=== PATIENT | female | born 1990 | race Caucasian/White ===

== ENCOUNTER 2019-10-20 15:26 | Emergency (ER) | payer BC ==
[~2019-10-20] VITALS: Ht 167.6 cm; Wt 86.0 kg
[~2019-10-20 15:26] MED LIST: ATIVAN0.5 MG PO; DEPO-ESTRADIOL; DIFLUCAN150 MG PO; GYNE-LOTRIMIN1 % VA; KLONOPIN0.5 MG PO; METRONIDAZOL0.75 % VA; METRONIDAZOL500 MG PO; PRENATAL VITAMINS
[2019-10-20 16:05] LABS: HEMATOCRIT 37.7 % (37.0-47.0); HEMOGLOBIN 12.3 g/dl (12.0-16.0); IMMATURE GRANULOCYTES 0.2 % (0.0-5.0); MEAN CELL VOLUME 84.9 fL CALC (80.0-100.0); MEAN CORPUSCULAR HGB 27.7 pG CALC (26.0-32.0); MEAN CORPUSCULAR HGB CONC 32.6 g/dL CAL (32.0-36.0); NEUT# 7.15 thou/uL (2.00-7.15); RED BLOOD COUNT 4.44 mill/uL (4.20-5.60); RED CELL DISTRI WIDTH 12.4 % (11.5-15.5)
[2019-10-20 16:08] LABS: URINE BILIRUBIN - DIPSTICK NEGATIVE (NEGATIVE); URINE BLOOD DIPSTICK NEGATIVE (NEGATIVE); URINE COLOR YELLOW; URINE GLUCOSE - DIPSTICK NEGATIVE (NEGATIVE); URINE KETONE NEGATIVE (NEGATIVE); URINE LEUK ESTERASE NEGATIVE (NEGATIVE); URINE NITRITE - DIPSTICK NEGATIVE (Negative); URINE PROTEIN - DIPSTICK NEGATIVE (NEG-TRACE); URINE SPECIFIC GRAVITY 1.025; URINE UROBILINOGEN - DIPSTICK 0.2 E.U./dL (0.2)
[2019-10-20] MEDS ORDERED: LAMICTAL100 M1 PO (16:23)
[2019-10-20] MEDS ORDERED: AMBIEN5 MG PO (16:23)
[2019-10-20] MEDS ORDERED: KLONOPIN0.5 MG PO (16:24)
[2019-10-20 16:36] LABS: ALBUMIN 4.2 g/dL (3.2-5.0); ALKALINE PHOSPHATASE 62 u/l (38-126); ANION GAP 12 (6-22 (CALC)); BILIRUBIN, TOTAL 0.3 mg/dL (0.0-1.4); BUN 13 mg/dL (7-17); BUN/CREATININE RATIO 21 (12-20 (CALC)); CARBON DIOXIDE 27 mmol/l (22-30); CHLORIDE 102 mmol/l (95-108); CREATININE 0.6 mg/dL (0.5-1.0); GFR > 60 ML/MIN (>=60 (CALC)); GFR FOR AFR.AMER. > 60 ML/MIN (>=60 (CALC)); LIPASE 339 u/l (23-300); POTASSIUM 3.9 mmol/l (3.5-5.1); SGOT/AST 16 u/l (14-36); SODIUM 138 mmol/l (137-146)
[2019-10-20 17:50] VITALS: BP 117/75
== END 2019-10-20 17:50 | disposition home or self-care (01) | DRG 392 ==
LOC: ED 15:26
PROVIDERS: Family Medicine
DX: R10.12 Left upper quadrant pain (principal); R10.13 Epigastric pain
CPT/HCPCS: Q9967

== ENCOUNTER 2020-07-12 02:12 | Emergency (ER) | payer BC ==
[~2020-07-12] VITALS: Ht 167.6 cm; Wt 71.0 kg
[~2020-07-12 02:12] MED LIST changes: +AMBIEN5 MG PO; +LAMICTAL100 M1 PO
[2020-07-12 02:44] LABS: HEMATOCRIT 42.8 % (37.0-47.0); IMMATURE GRANULOCYTES 0.3 % (0.0-5.0); MEAN CELL VOLUME 86.3 fL CALC (80.0-100.0); MEAN CORPUSCULAR HGB 28.2 pG CALC (26.0-32.0); MEAN CORPUSCULAR HGB CONC 32.7 g/dL CAL (32.0-36.0); NEUT# 8.04 thou/uL (2.00-7.15); RED BLOOD COUNT 4.96 mill/uL (4.20-5.60); RED CELL DISTRI WIDTH 12.4 % (11.5-15.5)
[2020-07-12 02:46] LABS: URINE BLOOD DIPSTICK NEGATIVE (NEGATIVE); URINE COLOR YELLOW; URINE GLUCOSE - DIPSTICK NEGATIVE (NEGATIVE); URINE KETONE NEGATIVE (NEGATIVE); URINE LEUK ESTERASE NEGATIVE (NEGATIVE); URINE PROTEIN - DIPSTICK NEGATIVE (NEG-TRACE); URINE SPECIFIC GRAVITY >=1.030; URINE UROBILINOGEN - DIPSTICK 0.2 E.U./dL (0.2)
[2020-07-12 02:48] LABS: URINE BILIRUBIN - DIPSTICK NEGATIVE (NEGATIVE); URINE NITRITE - DIPSTICK NEGATIVE (Negative)
[2020-07-12 02:58] LABS: ALBUMIN 4.2 g/dL (3.2-5.0); ALKALINE PHOSPHATASE 56 u/l (38-126); AMYLASE 62 u/l (30-110); ANION GAP 12 (6-22 (CALC)); BILIRUBIN, TOTAL 0.3 mg/dL (0.0-1.4); BUN 13 mg/dL (7-17); BUN/CREATININE RATIO 17 (12-20 (CALC)); CARBON DIOXIDE 27 mmol/l (22-30); CHLORIDE 101 mmol/l (95-108); CREATININE 0.7 mg/dL (0.5-1.0); GFR > 60 ML/MIN (>=60 (CALC)); GFR FOR AFR.AMER. > 60 ML/MIN (>=60 (CALC)); LIPASE 78 u/l (23-300); POTASSIUM 3.9 mmol/l (3.5-5.1); SGOT/AST 15 u/l (14-36); SODIUM 136 mmol/l (137-146); TOTAL PROTEIN 7.6 g/dL (6.3-8.2)
[2020-07-12] MEDS ORDERED: TRAMADOL HCL50 MG PO (04:19)
[2020-07-12] MEDS ORDERED: PHENERGAN25 MG/TAB PO (04:19)
[2020-07-12 05:19] VITALS: BP 118/76
[2020-07-12] MEDS ORDERED: KLONOPIN0.5 MG PO (17:17)
[2020-07-13] MEDS ORDERED: PHENERGAN25 MG/TAB PO (18:37)
== END 2020-07-12 04:52 | disposition home or self-care (01) | DRG 392 ==
LOC: ED 02:12
PROVIDERS: Family Medicine
DX: R10.11 Right upper quadrant pain (principal); R10.13 Epigastric pain
CPT/HCPCS: Q9967

== ENCOUNTER 2020-07-12 20:07 | Observation (INO) | payer BC ==
[~2020-07-12] VITALS: Ht 167.6 cm; Wt 73.0 kg
[~2020-07-12 20:07] MED LIST changes: +PHENERGAN25 MG/TAB PO; +TRAMADOL HCL50 MG PO
[2020-07-12 20:27] VITALS: BP 105/72
--- NOTE | 2020-07-12 22:30 | NUR ---
PATIENT ADMITTED FROM REGISTRATION WITH [facility] STAFF IN ATTENDANCE. PATIENT IS AMBULATORY WITH STEADY GAIT. DIRECT ADMIT TO ROOM 262. ALERT AND ORIENTEDX3. PATIENT ADMITTED FOR CHOLECYSTITIS AND FOR OR TOMOOROW WITH DR. PIERRE. PATIENT WITH NO COMPLAINTS OF PAIN OR NAUSEA THIS TIME. ADMISSION ASSESSMENT COMPLETED. IV SITE STARTED TO RIGHT HAND-#2O BY AMARI BENAVIDES AFTER SEVERAL ATTEMPTS BY [facility] STAFF. IVF NS HUNG AND INFUSING VIA RIGHT HAND AT 75CC/HR. OR CONSENT HAS BEEN SIGNED. PRE-OP SHOWER WAS TAKEN WITH PRO-OP SCRUB. INSTRUCTED NPO AFTER MIDNIGHT. PATIENT ORIENTED TO ROOM AND SURROUNDINGS. INSTRUCTED ON USE OF NURSE CALL LIGHT SYSTEM, TV REMOTE AND PHONE. SAFETY PRECAUTIONS REINFORCED. CALL LIGHT IN REACH. WILL CONT TO MONITOR.
[2020-07-13] VITALS (9 sets, daily range): BP systolic 97–126; BP diastolic 57–79
--- NOTE | 2020-07-13 01:00 | NUR ---
PATIENT RESTING IN BED AT THIS TIME WITH EYES CLOSED. RESPS ARE EVEN AND UNLABORED. NPO FOR OR LATER TODAY. IVF NS PATENT AND INFUSING VIA RIGHT HAND AT 75CC/HR. CALL LIGHT IN REACH. WILL CONT TO MONITOR.
--- NOTE | 2020-07-13 04:03 | NUR ---
PATIENT RESTING IN BED-C/O HEADACHE-4/10 ON PAIN SCALE. MEDICATED WITH TORADOL 15MG IVP FOR HEADACHE. IVF NS PATENT AND INFUSING AT 75CC/HR VIA RIGHT HAND SITE. REMAINS NPO FOR OR LATER TODAY. CALL LIGHT IN REACH. WILL CONT TO MONITOR.
[2020-07-13 05:27] LABS: URINE BLOOD DIPSTICK NEGATIVE (NEGATIVE); URINE CLARITY SL CLOUDY; URINE COLOR YELLOW; URINE GLUCOSE - DIPSTICK NEGATIVE (NEGATIVE); URINE KETONE NEGATIVE (NEGATIVE); URINE LEUK ESTERASE NEGATIVE (Negative); URINE NITRITE - DIPSTICK NEGATIVE (Negative); URINE PROTEIN - DIPSTICK NEGATIVE (NEG-TRACE); URINE SPECIFIC GRAVITY >=1.030; URINE UROBILINOGEN - DIPSTICK 0.2 E.U./dL (0.2)
[2020-07-13 05:31] LABS: URINE BILIRUBIN - DIPSTICK NEGATIVE (NEGATIVE)
[2020-07-13 06:48] LABS: HEMATOCRIT 37.8 % (37.0-47.0); HEMOGLOBIN 12.2 g/dl (12.0-16.0); IMMATURE GRANULOCYTES 0.3 % (0.0-5.0); MEAN CELL VOLUME 88.5 fL CALC (80.0-100.0); MEAN CORPUSCULAR HGB 28.6 pG CALC (26.0-32.0); MEAN CORPUSCULAR HGB CONC 32.3 g/dL CAL (32.0-36.0); RED BLOOD COUNT 4.27 mill/uL (4.20-5.60); RED CELL DISTRI WIDTH 12.5 % (11.5-15.5)
[2020-07-13 07:06] LABS: ALBUMIN 3.1 g/dL (3.2-5.0); ALKALINE PHOSPHATASE 41 u/l (38-126); ANION GAP 9 (6-22 (CALC)); BUN 10 mg/dL (7-17); BUN/CREATININE RATIO 14 (12-20 (CALC)); CARBON DIOXIDE 24 mmol/l (22-30); CHLORIDE 107 mmol/l (95-108); CREATININE 0.7 mg/dL (0.5-1.0); GFR > 60 ML/MIN (>=60 (CALC)); GFR FOR AFR.AMER. > 60 ML/MIN (>=60 (CALC)); POTASSIUM 3.9 mmol/l (3.5-5.1); SGOT/AST 15 u/l (14-36); SODIUM 136 mmol/l (137-146); TOTAL PROTEIN 5.9 g/dL (6.3-8.2)
[2020-07-13 07:08] LABS: BILIRUBIN, TOTAL 0.3 mg/dL (0.0-1.4)
--- NOTE | 2020-07-13 07:49 | NUR ---
PT LAYING IN BED. A&O X4. NO DISTRESS NOTED. PT DENIES ANY ABD PAIN OR N&V. CLEAR BREATH SOUNDS UPON AUSCULTATION. ACTIVE BOWEL SOUNDS X4 QUADS. #20 RH WITH NS INFUSING PER EMAR ORDERS. PT EDUCATED AND EXPLAINED ON NEEDED COVID TEST PRIOR TO BE TAKEN TO SURGERY, PT AGREEABLE. COVID SWAB SAMPLE OBTAINED FROM BOTH NARES, PT TOLERATED WELL. ASSESSMENT COMPLETED. DISCUSSED POC. CALL LIGHT WITHIN REACH.
--- NOTE | 2020-07-13 09:27 | NUR ---
HOME MEDS COUNTED AND VERIFIED WITH PATIENT AND Tani BAUGH RN. MEDICATIONS SEALED AND SENT TO PHARMACY.
--- NOTE | 2020-07-13 09:35 | NUR ---
DR DALE AT BEDSIDE DISCUSSING POC
--- NOTE | 2020-07-13 09:56 | NUR ---
PT TAKEN TO OR VIA STRETCHER IN STABLE CONDITION.
--- NOTE | 2020-07-13 12:27 | NUR ---
REPORT REC FROM JEMAL BENAVIDES.
--- NOTE | 2020-07-13 12:36 | NUR ---
PT ARRIVED VIA STRETCHER ACCOMPANIED BY Judi MORE RN. PT DROWSY BUT ABLE TO FOLLOW DIRECTIONS. PT ABLE TO MOVE HERSELF FROM OR STRETCHER TO THE BED. 4 SMALL LAPAROSCOPIC INCISIONS NOTED TO RU ABD AND UBMILICUS. SCD'S APPLIED. PT EDUCATED ON CALLING WHEN WANTING TO GET OOB TO PREVENT A FALL. PT VERBALIZED UNDERSTANDING. BED SET IN LOWEST POSITION. CALL LIGHT WITHIN REACH.
--- NOTE | 2020-07-13 12:57 | NUR ---
PT ASSISTED TO BATHROOM. STEADY GAIT NOTED. 150 CC OF CLEAR YELLOW URINE NOTED. PT ASSISTED BACK INTO BED. VSS. CALL LIGHT WITHIN REACH.
--- NOTE | 2020-07-13 13:48 | NUR ---
PT TOLERATING ICE CHIPS AND WATER WITH NO COMPLICATIONS. CALL LIGHT WITHIN REACH.
--- NOTE | 2020-07-13 14:12 | NUR ---
PT C/O OF PAIN RATED AT A "5" OUT OF THE 0-10 PAIN SCALE. PRN PO MEDICATION GIVEN. PT TOLERATED WELL. FAMILY MEMBER AT BEDSIDE. NO OTHER NEEDS AT THIS TIME. CALL LIGHT WITHIN REACH.
--- NOTE | 2020-07-13 16:19 | NUR ---
CRITICAL RESULT OF HGB 6.8 GIVEN TO Tani MOSQUERA APRN. AWAITING RESULTS.
--- NOTE | 2020-07-13 18:09 | NUR ---
D/C INSTRUCTIONS GIVEN TO PT. PT VERBALIZED UNDERSTANDING. IV INTACT UPON REMOVAL.
--- NOTE | 2020-07-13 18:13 | NUR ---
Discharge instructions given. instructions on no heavy lifting and prescription for pain given and appointment information for given. Patient verbalizes understanding of same. Discharged in stable condition via wheelchair to home accompanied by and staff. All belongings sent with pt. Pt encouraged to return for new or worsening symptoms.
[2020-07-13] MEDS ORDERED: PHENERGAN25 MG/TAB PO (18:37)
== END 2020-07-13 18:12 | disposition home or self-care (01) | DRG 419 ==
LOC: MS2 20:07
PROVIDERS: ADMIT Surgery; ATTEND Surgery
PROC: 0FT44ZZ Resection of Gallbladder, Percutaneous Endoscopic Approach (ICD-10-PCS; principal; 2020-07-13)
DX: K80.12 Calculus of gallbladder with acute and chronic cholecystitis without obstruction (principal); F41.9 Anxiety disorder, unspecified; F32.9 Major depressive disorder, single episode, unspecified; Z20.822 Contact with and (suspected) exposure to COVID-19; R10.11 Right upper quadrant pain; R10.13 Epigastric pain; K82.9 Disease of gallbladder, unspecified
CPT/HCPCS: G0378; G0379; J0131; J2710; Q9967

== ENCOUNTER 2021-03-03 16:06 | Emergency (ER) | payer BC ==
[~2021-03-03] VITALS: Ht 167.6 cm; Wt 70.0 kg
[2021-03-03 17:30] LABS: URINE BILIRUBIN - DIPSTICK NEGATIVE (NEGATIVE); URINE BLOOD DIPSTICK NEGATIVE (NEGATIVE); URINE COLOR YELLOW; URINE GLUCOSE - DIPSTICK NEGATIVE (NEGATIVE); URINE KETONE NEGATIVE (NEGATIVE); URINE LEUK ESTERASE NEGATIVE (NEGATIVE); URINE PROTEIN - DIPSTICK NEGATIVE (NEG-TRACE); URINE UROBILINOGEN - DIPSTICK 0.2 E.U./dL (0.2)
[2021-03-03 17:31] LABS: URINE NITRITE - DIPSTICK POSITIVE (Negative)
[2021-03-03 17:35] LABS: HEMATOCRIT 43.2 % (37.0-47.0); HEMOGLOBIN 14.1 g/dl (12.0-16.0); IMMATURE GRANULOCYTES 0.2 % (0.0-5.0); MEAN CELL VOLUME 87.1 fL CALC (80.0-100.0); MEAN CORPUSCULAR HGB 28.4 pG CALC (26.0-32.0); MEAN CORPUSCULAR HGB CONC 32.6 g/dL CAL (32.0-36.0); NEUT# 3.19 thou/uL (2.00-7.15); RED BLOOD COUNT 4.96 mill/uL (4.20-5.60); RED CELL DISTRI WIDTH 12.3 % (11.5-15.5)
[2021-03-03 17:40] LABS: URINE BACTERIA RARE hpf; URINE RBC 0-2 RBC/hpf (0-5); URINE SQUAMOUS EPITHELIAL CELL FEW EPI/hpf (0-FEW); URINE WBC 0-2 WBC/hpf (0-5)
[2021-03-03 17:45] LABS: ANION GAP 15 (6-22 (CALC)); BUN 10 mg/dL (7-17); BUN/CREATININE RATIO 14 (12-20 (CALC)); CARBON DIOXIDE 27 mmol/l (22-30); CHLORIDE 99 mmol/l (95-108); CREATININE 0.7 mg/dL (0.5-1.0); GFR > 60 ML/MIN (>=60 (CALC)); GFR FOR AFR.AMER. > 60 ML/MIN (>=60 (CALC)); SGOT/AST 16 u/l (14-36); SODIUM 137 mmol/l (137-146)
[2021-03-03 17:46] LABS: ALBUMIN 4.5 g/dL (3.2-5.0); ALKALINE PHOSPHATASE 68 u/l (38-126); BILIRUBIN, TOTAL 0.5 mg/dL (0.0-1.4); TOTAL PROTEIN 8.5 g/dL (6.3-8.2)
[2021-03-03 20:54] LABS: AMYLASE 220 u/l (30-110); LIPASE 1235 u/l (23-300)
[2021-03-03] MEDS ORDERED: TRAMADOL HCL50 MG PO (21:14)
[2021-03-03] MEDS ORDERED: PROMETHAZINE HY25 M1 PO (21:14)
[2021-03-03 21:33] VITALS: BP 109/66
== END 2021-03-03 21:53 | disposition home or self-care (01) | DRG 440 ==
LOC: ED 16:06
PROVIDERS: Emergency Medicine; Family Medicine
DX: K85.90 Acute pancreatitis without necrosis or infection, unspecified (principal); F41.9 Anxiety disorder, unspecified; F32.A Depression, unspecified
CPT/HCPCS: Q9967; S0164

== ENCOUNTER 2021-11-24 16:42 | Emergency (ER) | payer OTHER, BC ==
[~2021-11-24] VITALS: Ht 167.6 cm; Wt 75.0 kg
[~2021-11-24 16:42] MED LIST changes: +PROMETHAZINE HY25 M1 PO; +VITAMIN DE1000 MCG/M IM
[2021-11-24 17:22] VITALS: BP 114/78
[2021-11-24 17:30] VITALS: BP 112/80
[2021-11-24 18:05] LABS: HEMATOCRIT 42.1 % (37.0-47.0); HEMOGLOBIN 14.3 g/dl (12.0-16.0); IMMATURE GRANULOCYTES 0.1 % (0.0-5.0); MEAN CELL VOLUME 85.9 fL CALC (80.0-100.0); MEAN CORPUSCULAR HGB 29.2 pG CALC (26.0-32.0); NEUT# 7.37 thou/uL (2.00-7.15); RED BLOOD COUNT 4.9 mill/uL (4.20-5.60); RED CELL DISTRI WIDTH 12.1 % (11.5-15.5)
[2021-11-24 18:06] LABS: URINE BILIRUBIN - DIPSTICK NEGATIVE (NEGATIVE); URINE BLOOD DIPSTICK NEGATIVE (NEGATIVE); URINE COLOR YELLOW; URINE GLUCOSE - DIPSTICK NEGATIVE (NEGATIVE); URINE KETONE NEGATIVE (NEGATIVE); URINE LEUK ESTERASE NEGATIVE (NEGATIVE); URINE PROTEIN - DIPSTICK NEGATIVE (NEG-TRACE); URINE SPECIFIC GRAVITY 1.025; URINE UROBILINOGEN - DIPSTICK 0.2 E.U./dL (0.2)
[2021-11-24 18:08] LABS: URINE NITRITE - DIPSTICK NEGATIVE (Negative)
[2021-11-24 18:22] LABS: ALBUMIN 4.9 g/dL (3.2-5.0); ALKALINE PHOSPHATASE 63 u/l (38-126); ANION GAP 18 (6-22 (CALC)); BILIRUBIN, TOTAL 0.4 mg/dL (0.0-1.4); BUN 15 mg/dL (7-17); BUN/CREATININE RATIO 16 (12-20 (CALC)); CARBON DIOXIDE 24 mmol/l (22-30); CHLORIDE 101 mmol/l (95-108); CREATININE 0.9 mg/dL (0.5-1.0); GFR FOR AFR.AMER. > 60 ML/MIN (>=60 (CALC)); GFR OTHER RACES > 60 ML/MIN (>=60 (CALC)); LIPASE 303 u/l (23-300); SGOT/AST 23 u/l (14-36); SODIUM 140 mmol/l (137-146); TOTAL PROTEIN 8.9 g/dL (6.3-8.2)
[2021-11-24 19:15] VITALS: BP 126/72
[2021-11-24 19:30] VITALS: BP 114/93
[2021-11-24 19:32] VITALS: BP 114/75
[2021-11-24] MEDS ORDERED: PEPCID40 MG PO (19:32)
[2021-11-24] MEDS ORDERED: TRAMADOL HCL50 MG PO (19:32)
[2021-11-24 19:39] VITALS: BP 114/75
[2021-11-28] MEDS ORDERED: LAMICTAL25 M2 PO (11:15)
== END 2021-11-24 20:04 | disposition home or self-care (01) | DRG 440 ==
LOC: ED 16:42
PROVIDERS: Family Medicine
DX: K85.90 Acute pancreatitis without necrosis or infection, unspecified (principal); F41.9 Anxiety disorder, unspecified; F32.A Depression, unspecified; R10.13 Epigastric pain; Z79.899 Other long term (current) drug therapy
CPT/HCPCS: Q9967